=== PATIENT | female | born 1990 | race Caucasian/White ===

== ENCOUNTER 2018-11-21 22:15 | Inpatient (IN) | payer OTHER ==
[~2018-11-21] VITALS: Ht 152.4 cm; Wt 74.8 kg
--- NOTE | 2018-11-21 22:16 | NUR ---
PT OBINNA ALS. TAKEN TO BED 6
[2018-11-21 22:20] VITALS: BP 121/87
--- NOTE | 2018-11-21 22:20 | NUR ---
PT BIBA FOR INTENTIONAL OD, W/ SI, ON UNKNOWN NUMBER OF TYLENOL PM TABS X 1 HOUR AGO. ON ARRIVAL TO ER, PT IS A&OX4, ANSWERS ALL QUESTIONS WITH DELAYED RESPONSE AND DEMOSNTRATES SLURRED SPEECH. PT IS ON A 6820 HOLD WRITTEN BY [place] . PATIENT IS LETHARGIC AND NOT FOLLOWING COMMANDS.
--- NOTE | 2018-11-21 22:25 | NUR ---
SPOKE ITZEL AT POISON CONTROL WHO RECOMMENDS STANDARD SI WORK-UP W/ TYLENOL LEVEL AFTER 4 HOUR INGESTION TIME. IF TYLENOL >150, GIVE MUCOMYST. RECHECK TYLENOL AT 6 HOURS IF NOT TOXIC AFTER 4 HOURS. MONITOR HR AND FOR POSSIBLE SZ S/T BENADRYL IN TYLENOL PM. MD GRAHAM/PRIMARY RN KIKA NOTIFIED.
[2018-11-21] MEDS ORDERED: NACL 0.9% 1,000 ML IV ONE (22:30)
--- NOTE | 2018-11-21 22:32 | NUR ---
Dr. Stout evaluating patient at bedside.
--- NOTE | 2018-11-21 23:20 | NUR ---
# 14 FR Urinary catheter inserted utilizing sterile technique. Immediate return of 150 ml urine noted. Urine sample collected and sent to lab. Pt tolerated procedure well.
[2018-11-21 23:33] LABS: BARBITURATE, URINE NEG. ng/ml (NEG <=200); BENZODIAZEPINE, URINE NEG. ng/mL (NEG <=200); CANNABINOID, URINE NEG. ng/mL (NEG <=50); COCAINE, URINE NEG. ng/mL (NEG <=300); OPIATE, URINE NEG. ng/mL (NEG <=2000); PHENCYCLIDINE SCREEN,URINE NEG. ng/mL (NEG <=25)
[2018-11-21 23:36] LABS: BASOPHILS % (AUTO) 0.6 % (0.0-2.0); EOSINOPHILS # (AUTO) 0.2 K/uL (0-0.4); EOSINOPHILS % (AUTO) 2.4 % (0.0-4.0); HEMATOCRIT 39.2 % (36-48); LYMPHOCYTES # (AUTO) 2.9 K/uL (2.5-16.5); LYMPHOCYTES % (AUTO) 38.2 % (20.5-51.1); MEAN CORPUSCULAR HEMOGLOBIN 30 pg (27-31); MEAN CORPUSCULAR HGB CONC 33 g/dL (33-37); MEAN CORPUSCULAR VOLUME 89.8 fL (80-94); MONOCYTES # (AUTO) 0.7 K/uL (0.8-1.0); MONOCYTES % (AUTO) 9.7 % (1.7-9.3); NEUTROPHILS # (AUTO) 3.8 K/uL (1.8-7.7); NEUTROPHILS % (AUTO) 49.1 % (42.2-75.2); PLATELET COUNT (AUTO) 284 K/uL (140-450); RED BLOOD CELL COUNT(AUTO) 4.36 MIL/uL (4.20-5.40); RED CELL DISTRIBUTION WIDTH 12.8 % (11.6-13.7); WHITE BLOOD COUNT (AUTO) 7.7 K/uL (4.8-10.8)
[2018-11-22] VITALS (11 sets, daily range): BP systolic 102–127; BP diastolic 67–87
[2018-11-22 00:07] LABS: ANION GAP 17.5 (8-16); CARBON DIOXIDE 24.1 mmol/L (21-32); CHLORIDE 107 mmol/L (98-107); GLUCOSE 119 mg/dL (74-106); POTASSIUM 3.6 mmol/L (3.5-5.1); SODIUM SERUM 145 mmol/L (136-145)
[2018-11-22 00:08] LABS: ALBUMIN 3.5 g/dL (3.4-5.0); ASPARTATE AMINOTRANSFERASE 16 U/L (15-37); CREATININE 0.9 mg/dL (0.6-1.3); GFR ARICAN-AMERICAN 97 mL/min (>90); SALICYLATE < 2.8 mg/dL (2.8-20.0); TOTAL BILIRUBIN 0.2 mg/dL (0.0-1.0)
[2018-11-22 00:10] LABS: ACETAMINOPHEN 211.9 ug/ml (10-30)
[2018-11-22 00:12] LABS: UREA NITROGEN, BLOOD 10 mg/dL (7-18)
[2018-11-22] MEDS ORDERED: ACETYLCYSTEINE 20% (200 MG/ML) 200 MG/ML VIAL MC ONE (00:20)
[2018-11-22] MEDS ORDERED: ACETYLCYSTEINE 20% (200 MG/ML) 200 MG/ML VIAL ONE (00:31)
[2018-11-22] MEDS ORDERED: NACL 0.9% 1,000 ML IV SCH (00:31)
[2018-11-22] MEDS ORDERED: ONDANSETRON 4 MG/2 ML VIAL IM/IVP PRN (00:35)
[2018-11-22] MEDS ORDERED: DOCUSATE SODIUM 100 MG GELCAP PO PRN (00:35)
[2018-11-22] MEDS ORDERED: MORPHINE SULFATE 2 MG/ML SYR IVP PRN (00:35)
--- NOTE | 2018-11-22 00:56 | NUR ---
X-Ray at bedside.
[2018-11-22] MEDS ORDERED: LORazepam 1 MG TAB PO PRN (01:00)
[2018-11-22 01:15] LABS: APPEARANCE,URINE CLEAR (CLEAR); BILIRUBIN,URINE NEGATIVE (NEGATIVE); BLOOD, URINE NEGATIVE (NEGATIVE); COLOR,URINE YELLOW (YELLOW); LEUKOCYTE ESTERASE ,URINE NEGATIVE (NEGATIVE); NITRITE, URINE NEGATIVE (NEGATIVE); UGLUCOSE NEGATIVE (NEGATIVE)
--- NOTE | 2018-11-22 01:20 | NUR ---
RECEIVED REPORT FROM ER. NO ACUTE DISTRESS NOTED. WILL CONTINUE TO OBSERVE
--- NOTE | 2018-11-22 01:25 | NUR ---
PT HAS EYES CLOSED; OPENS TO VOICE. PT HAS SLURRED SPEECH @ TIMES ABLE TO FOLLOW SIMPLE COMMANDS. AOX1 @ THIS TIME. GENERALIZED WEAKNESS. PT ON 5150 HOLD, SUICIDAL PRECAUTIONS IN PLACE. PT DENIES THOUGHTS OF HURTING SELF OR OTHERS. DENIES SUICIDE PLAN. LUNGS CLEAR EVEN UNLABORED, S1 S2 HEARD. ABD SOFT NON DISTENDED. PT HAS PERIODS OF NAUSEA. BED LOCKED IN LOWEST POSITION. WILL CONTINUE TO OBSERVE.
[2018-11-22 01:26] LABS: CHOL/HDL RATIO 2.8 (1-4.5); MAGNESIUM 1.9 mg/dL (1.8-2.4); PHOSPHORUS 3.3 mg/dL (2.5-4.9); THYROID STIMULATING HORMONE 2.05 uIU/mL (0.34-3.74)
--- NOTE | 2018-11-22 01:27 | NUR ---
SPOKE TO DR FLETCHER, SHE WILL CANCEL ORDER FOR 0031 EKG SINCE ONE WAS DONE IN ER.
[2018-11-22] MEDS ORDERED: ACETYLCYSTEINE IV PER PHARMACY 1 EA MISC MC SCH (01:30)
--- NOTE | 2018-11-22 01:30 | NUR ---
Patient will be admitted to care of DR. BRADFORD. Admited to ICU. Will go to room 6. Belongings list completed. Report to NICOLETTE BRAN. VSS
--- NOTE | 2018-11-22 01:30 | NUR ---
Pt report given to YINA WILL. Transfer of care at this time.VSS
[2018-11-22] MEDS ORDERED: DEXTROSE 5% IV SCH ×3 (02:00→06:00)
[2018-11-22] MEDS ORDERED: ACETYLCYSTEINE IV SCH ×3 (02:00→06:00)
--- NOTE | 2018-11-22 02:10 | NUR ---
RECEIVED A CALL FROM POISON CONTROL, SPOKE TO MARGO. UPDATED HIM REGARDING THE PT'S CONDITION AND LAB VALUES PERTINENT TO PT'S CONDITION. CURRENT RECOMMENDATION WAS ALREADY ORDERED BY ATTENDING PHYSICIAN. WILL CONTINUE TO MONITOR PT.
--- NOTE | 2018-11-22 02:13 | NUR ---
CALLED LAB AND SPOKE TO KI, INFORMED HER THAT PT HAS A SCHEDULED DRAW AT 0200.
[2018-11-22 03:38] LABS: PROTHROMBIN TIME 10.7 secs (10.8-13.4)
--- NOTE | 2018-11-22 03:39 | NUR ---
RECEIVED A CALL FROM DR. FLETCHER FOLLOWING UP REGARDING THE MUCOMYST ORDERED FOR PT. INFORMED DR. FLETCHER THAT WE ARE CURRENTLY WAITING FOR THE PHARMACIST TO MIX THE MEDICATION. WILL FOLLOW-UP WITH INFORMATION CONSULTANT REGARDING THE MEDICATION AND TO CALL BACK DR. FLETCHER.
--- NOTE | 2018-11-22 03:40 | NUR ---
CALLED DRILLING FIELD SPECIALIST, PER SELINA, PHARMACIST IS ALREADY IN BUT CURRENTLY TRYING TO FIND ENOUGH MUCOMYST DUE TO HIGH DOSAGE ORDERED.
--- NOTE | 2018-11-22 03:42 | NUR ---
CALLED BACK DR. FLETCHER TO INFORM HER REGARDING THE STATUS OF THE MEDICATION. WILL CONTINUE TO FOLLOW-UP WITH THE MEDICATION AND KEEP MONITORING THE PT.
--- NOTE | 2018-11-22 04:05 | NUR ---
DR. FLETCHER AT BEDSIDE TO SEE PT. UPDATED HER REGARDING THE PT'S CONDITION. PT WAS ABLE TO TALK TO DR. FLETCHER AND PROVIDE SOME CONTACT INFORMATION AT THIS TIME.
--- NOTE | 2018-11-22 06:39 | NUR ---
RECEIVED A CALL FROM DR. CISNEROS, INFORMED HIM REGARDING THE CURRENT STATUS AND LAB VALUES OF PT. RECEIVED A NEW ORDER. LAB NOTIFIED REGARDING ADDITIONAL ORDER.
--- NOTE | 2018-11-22 06:55 | NUR ---
DR CISNEROS @ BEDSIDE. PT DENIES SUICIDE IDEATION @ THIS TIME. NO ACUTE DISTRESS
[2018-11-22] MEDS: DEXT 5% / NACL 0.45% 1,000 ML IV SCH ×2 (07:00→15:40)
--- NOTE | 2018-11-22 07:15 | NUR ---
REPORT GIVEN TO DAY NURSE. NO ACUTE DISTRESS NOTED.
[2018-11-22 07:39] LABS: BASOPHILS % (AUTO) 0.4 % (0.0-2.0); EOSINOPHILS % (AUTO) 0.1 % (0.0-4.0); HEMATOCRIT 37.5 % (36-48); HEMOGLOBIN 12.5 g/dL (12.0-16.0); LYMPHOCYTES # (AUTO) 0.6 K/uL (2.5-16.5); LYMPHOCYTES % (AUTO) 11.8 % (20.5-51.1); MEAN CORPUSCULAR HEMOGLOBIN 30 pg (27-31); MEAN CORPUSCULAR HGB CONC 33 g/dL (33-37); MEAN CORPUSCULAR VOLUME 90.1 fL (80-94); MONOCYTES # (AUTO) 0.4 K/uL (0.8-1.0); MONOCYTES % (AUTO) 7.6 % (1.7-9.3); NEUTROPHILS % (AUTO) 80.1 % (42.2-75.2); PLATELET COUNT (AUTO) 239 K/uL (140-450); RED BLOOD CELL COUNT(AUTO) 4.17 MIL/uL (4.20-5.40); RED CELL DISTRIBUTION WIDTH 12.9 % (11.6-13.7)
--- NOTE | 2018-11-22 07:45 | NUR ---
AWAKE, RESPONDS APPROPRIATELY TO QUESTIONS. DENIES ANY PAINS. DENIES WANTING TO HURT/KILL SELF. STATES SHE DID WHAT SHE DID TO GET ATTENTION FROM HER FAMILY. ( HER FAMILY LIVES IN [place] ) ADMITS TO TAKING AMPHETAMINES X 6 YEARS AND THAT SHE'S SEEN A PSYCHIATRIST IN THE PAST. LAST TIME WAS A YEAR AGO. IV MUCOMYST DRIP INFUSING VIA RT AC IV SITE. D5 0.45% INFUSING AT 100 ML/HR VIA RT HAND IV SITE. ABLE TO REPOSITION SELF IN BED WITH MINIMAL ASSIST.
--- NOTE | 2018-11-22 07:50 | NUR ---
DR. BRADFORD HERE TO SEE AND EXAMINE PT.
[2018-11-22 08:21] LABS: PROTHROMBIN TIME 10.5 secs (10.8-13.4)
--- NOTE | 2018-11-22 08:30 | NUR ---
C/O PAIN OVER RT AC IV SITE. SL REDDENED. IV DC'D. RESTARTED ON RT FA G 20.
[2018-11-22 08:35] LABS: CARBON DIOXIDE 20.8 mmol/L (21-32)
--- NOTE | 2018-11-22 08:45 | NUR ---
VOMITED MOD. AMT OF PREVIOUSLY INGESTED FOOD. ORAL CARE DONE. ZOFRAN 4 MG IVP GIVEN.
--- NOTE | 2018-11-22 09:00 | NUR ---
MADE AWARE THAT SHE IS NPO EXCEPT MEDS.
[2018-11-22 09:05] LABS: ANION GAP 19.1 (8-16); CREATININE 0.7 mg/dL (0.6-1.3); POTASSIUM 3.9 mmol/L (3.5-5.1)
[2018-11-22 09:15] LABS: ALBUMIN 3.1 g/dL (3.4-5.0); BILIRUBIN,DIRECT 0.1 mg/dL (0.0-0.3); TOTAL BILIRUBIN 0.3 mg/dL (0.0-1.0)
--- NOTE | 2018-11-22 09:20 | NUR ---
DR. GERARDO HERE TO SEE AND EXAMINE PT.
[2018-11-22] MEDS: MULTIVITAMIN 1 TAB PO SCH (09:24)
[2018-11-22] MEDS: FOLIC ACID 1 MG TAB PO SCH (09:25)
[2018-11-22] MEDS: THIAMINE 100 MG TAB PO SCH (09:31)
--- NOTE | 2018-11-22 10:15 | NUR ---
NO NAUSEA/VOMITING NOTED AT THIS TIME.
--- NOTE | 2018-11-22 11:03 | NUR ---
SPOKE TO RUBIN FROM POISON CONTROL. UPDATED ON PT'S CONDITION AND LAB RESULTS. RECOMMENDED TO DO REPEAT TYLENOL LEVEL, LIVER PANEL, PT/INR AFTER CURRENT MUCOMYST DRIP IS INFUSED.
--- NOTE | 2018-11-22 11:15 | NUR ---
DR. PAULINO NOTIFIED OF POISON CONTROL RECOMMENDATIONS.
--- NOTE | 2018-11-22 12:00 | NUR ---
AWAKE, REPOSITIONED. DENIES ANY DISCOMFORTS. AWARE THAT WE ARE WAITING FOR PSYCHIATRIST TO COME AND EVALUATE HER.
--- NOTE | 2018-11-22 12:26 | NUR ---
DR. ANGELREES HERE TO SEE AND EXAMINE PT.
--- NOTE | 2018-11-22 13:00 | NUR ---
ASSISTED TO BEDSIDE COMMODE. GAIT STEADY. VOIDED 800 ML OF BLOOD TINGED URINE. PT HAS MENSTRUAL PERIOD. BATH AND ORAL CARE DONE. LINENS CHANGED. TOLERATED ACTIVITY WELL.
--- NOTE | 2018-11-22 13:15 | NUR ---
LUNCH SERVED. CLEAR LIQUID DIET. ATE 90% NO N/V.
--- NOTE | 2018-11-22 16:13 | NUR ---
PT RESTING IN BED. ASSISTED WITH REPOSITION. DENIES PAIN OR DISCOMFORT. VSS. AFEBRILE. CLOSELY MONITORED. ALL SAFETY PRECAUTIONS ARE IN PLACE.
--- NOTE | 2018-11-22 17:55 | NUR ---
PT CONSUMED 100% OF CLEAR LIQUID DIET AND TOLERATED WELL. VSS AND DENIES N/V OR ANY DISCOMFORT AT THIS TIME. ALL SAFETY PRECAUTIONS ARE IN PLACE. WILL CONTINUE TO CLOSELY MONITOR.
--- NOTE | 2018-11-22 18:15 | NUR ---
PT HAD A LARGE SOFT BM. ASSISTED WITH HYGIENE. TOLERATED WELL. VSS. NO ACUTE DISTRESS NOTED. DENIES PAIN OR DISCOMFORT. DENIES ANY SUICIDAL IDEATION. CONTINUE TO MONITOR CLOSELY.
--- NOTE | 2018-11-22 18:24 | NUR ---
DR. FLETCHER IN TO SEE PT.
[2018-11-22] MEDS ORDERED: SERT50TA PO (18:47)
[2018-11-22] MEDS ORDERED: PROP10TA28 PO (18:47)
[2018-11-22] MEDS ORDERED: AMPH30CE PO (18:47)
--- NOTE | 2018-11-22 19:07 | NUR ---
REPORT GIVEN TO NIGHT NURSE FOR CONTINUITY OF CARE. PT RESTING IN BED. VSS. DENIES ANY DISCOMFORT. ALL SAFETY PRECAUTIONS ARE IN PLACE.
--- NOTE | 2018-11-22 19:08 | NUR ---
RECEIVED REPORT FROM AM SHIFT. PT RESTING QUIETLY IN BED. ON 5150 FOR SUICIDE IDEATION AND DRUG OVERDOSE. AOX4. ABLE TO VERBALIZE NEEDS. FOLLOWS COMMANDS. ON ROOM AIR. EVEN UNLABORED BREATHING. SR ON MONITOR. FULL LIQUID DIET. BOWEL SOUNDS ACTIVE. LBM 11/22/18. CONTINENT TO BOWEL AND BLADDER. IV 20 G ON RIGHT FA. DRESSING INTACT. BSC PRIVILEGES. SKIN INTACT. NO SIGNS OF ACUTE DISTRESS AT THIS TIME. BED IN LOWEST POSITION. SR UP X4. WILL CONTINUE TO MONITOR.
--- NOTE | 2018-11-22 21:48 | NUR ---
PT RESTING AT THIS TIME. DENIES PAIN. DENIES NAUSEA. CONTINUE TO MONITOR
--- NOTE | 2018-11-22 22:22 | NUR ---
PT RESTING QUIETLY AT THIS TIME. NO SIGNS OF ACUTE DISTRESS NOTED BED IN LOWEST POSITION. CONTINUE TO MONITOR,
--- NOTE | 2018-11-22 23:15 | NUR ---
PT REPOSITIONS SELF INDEPENDENTLY IN BED. ABLE TO VERBALIZE NEEDS. DENIES SUICIDE IDEATION.
[2018-11-23] VITALS (8 sets, daily range): BP systolic 95–121; BP diastolic 61–88
[2018-11-23] MEDS: DEXT 5% / NACL 0.45% 1,000 ML IV SCH (01:40)
--- NOTE | 2018-11-23 01:42 | NUR ---
LAB AT BEDSIDE AT THIS TIME FOR BLOOD DRAWS
--- NOTE | 2018-11-23 02:42 | NUR ---
PT AT BEDSIDE COMMODE AT THIS TIME. VOIDED CLEAR YELLOW URINE. 600 ML. BED CHANGED AT THIS TIME. NO SIGNS OF ACUTE DISTRESS NOTED.
[2018-11-23 02:45] LABS: ALBUMIN 2.6 g/dL (3.4-5.0); BILIRUBIN,DIRECT 0.1 mg/dL (0.0-0.3); TOTAL BILIRUBIN 0.4 mg/dL (0.0-1.0)
[2018-11-23 02:46] LABS: ACETAMINOPHEN 2.5 ug/ml (10-30)
[2018-11-23 02:49] LABS: PROTHROMBIN TIME 10.9 secs (10.8-13.4)
--- NOTE | 2018-11-23 03:07 | NUR ---
SPOKE WITH NURYS AT POISON CONTROL. NOTIFIED ON CURRENT LAB VALUES: ACETAMINOPHEN 2.5 AND AST/ALT WNL.
--- NOTE | 2018-11-23 03:09 | NUR ---
SPOKE WITH DR. FLETCHER REGARDING POISON CONTROLS DECISION TO CLEAR THE CASE. MD MADE AWARE AND MUCOMYST TO BE DISCONTINUED. WILL FOLLOW UP ANY ADDITIONAL ORDERS.
--- NOTE | 2018-11-23 04:43 | NUR ---
PT SLEEPING AT THIS TIME. DENIES PAIN. NO SIGNS OF ACUTE DISTRESS NOTED.
--- NOTE | 2018-11-23 05:44 | NUR ---
LAB AT BEDSIDE AT THIS TIME FOR AM DRAW.
[2018-11-23 06:01] LABS: PROTHROMBIN TIME 10.7 secs (10.8-13.4)
[2018-11-23 06:27] LABS: ANION GAP 11.1 (8-16); CARBON DIOXIDE 24.9 mmol/L (21-32); CREATININE 0.7 mg/dL (0.6-1.3)
--- NOTE | 2018-11-23 06:30 | NUR ---
DR. CRANE AT BEDSIDE AT THIS TIME. UPDATED ON PTS CURRENT CONDITION. WILL CONTINUE TO FOLLOW UP ANY ADDITIONAL ORDERS.
[2018-11-23 06:34] LABS: BASOPHILS % (AUTO) 0.4 % (0.0-2.0); EOSINOPHILS # (AUTO) 0.1 K/uL (0-0.4); EOSINOPHILS % (AUTO) 1.4 % (0.0-4.0); HEMATOCRIT 35.2 % (36-48); HEMOGLOBIN 11.7 g/dL (12.0-16.0); LYMPHOCYTES # (AUTO) 2.4 K/uL (2.5-16.5); LYMPHOCYTES % (AUTO) 39.5 % (20.5-51.1); MEAN CORPUSCULAR HEMOGLOBIN 30 pg (27-31); MEAN CORPUSCULAR HGB CONC 33 g/dL (33-37); MEAN CORPUSCULAR VOLUME 89.8 fL (80-94); MONOCYTES # (AUTO) 0.4 K/uL (0.8-1.0); MONOCYTES % (AUTO) 6.8 % (1.7-9.3); NEUTROPHILS # (AUTO) 3.2 K/uL (1.8-7.7); NEUTROPHILS % (AUTO) 51.9 % (42.2-75.2); PLATELET COUNT (AUTO) 220 K/uL (140-450); RED BLOOD CELL COUNT(AUTO) 3.91 MIL/uL (4.20-5.40); WHITE BLOOD COUNT (AUTO) 6.1 K/uL (4.8-10.8)
[2018-11-23] MEDS: NACL 0.9% 250 ML IV SCH (06:36)
[2018-11-23] MEDS ORDERED: AMPH30CE PO (06:40)
[2018-11-23] MEDS ORDERED: SERT50TA PO (06:40)
[2018-11-23] MEDS ORDERED: PROP20TA28 PO (06:42)
[2018-11-23] MEDS ORDERED: POTASSIUM CHLORIDE 10 MEQ TABER PO ONE (06:50)
[2018-11-23] MEDS ORDERED: POTASSIUM CHLORIDE 40 MEQ, LIDOCAINE MPF 1% - 5 mL VIAL 25 MG in NACL 0.9% 250 ML IV ONE (06:50)
--- NOTE | 2018-11-23 06:50 | NUR ---
POTASSIUM 3.0 FROM AM DRAWS. MADE AWARE. WILL CONTINUE TO FOLLOW UP ANY ADDITIONAL ORDERS
--- NOTE | 2018-11-23 07:09 | NUR ---
ENDORSED CARE TO INCOMING SHIFT FOR CONTINUITY OF CARE.
--- NOTE | 2018-11-23 07:10 | NUR ---
RECEIVED REPORT FROM TEST DIRECTOR NURSE AT BEDSIDE, PT IS AAOX4, ABLE TO FOLLOW COMMANDS AND MAKE NEEDS KNOWN, DENIES PAIN, VSS, DENIES ANY SUICIDAL IDEATION, DENIES SOB, CLEAR LUNG SOUNDS FAMILIA, ON RA, O2 SAT 98%, DENIES CHEST PAIN, REGULAR HR, SR ON LADLE OPERATOR, SOFT ABDOMEN WITH ACTIVE BOWEL SOUNDS, CONTINENT WITH B&B'S, SKIN IS INTACT, WARM AND DRY TO TOUCH, ABLE TO MOVE ALL EXTREMITIES, FULL STRENGTH, IV SITE TO RIGHT FOREARM, 20GA AND 22GA, PATENT AND SL. HOB ELEVATED, SAFETY MEASURES IN PLACE, CALL LIGHT WITHIN REACH, WILL CONTINUE TO MONITOR.
[2018-11-23 07:54] LABS: MAGNESIUM 1.7 mg/dL (1.8-2.4); PHOSPHORUS 2.3 mg/dL (2.5-4.9)
--- NOTE | 2018-11-23 08:24 | NUR ---
PATIENT HAS BEEN SCREENED AND CATEGORIZED LOW NUTRITION RISK DUE TO 5150 HOLD. PATIENT WILL BE SEEN WITHIN 7 DAYS OF ADMISSION. 11/28/[address]
[2018-11-23] MEDS ORDERED: POTASSIUM CHLORIDE 10 MEQ TABER PO SCH (08:35)
[2018-11-23] MEDS: THIAMINE 100 MG TAB PO SCH (08:49)
[2018-11-23] MEDS: MULTIVITAMIN 1 TAB PO SCH (08:49)
[2018-11-23] MEDS: FOLIC ACID 1 MG TAB PO SCH (08:49)
[2018-11-23] MEDS: SERTRALINE 50 MG TAB PO SCH (08:49)
--- NOTE | 2018-11-23 09:24 | NUR ---
CM NOTE RECEIVED ORDER TO TRANSFER TO INPATIENT PSYCH FACILITY. FAXED ORDER, COPY OF 2269, CLINICAL PACKET TO [facility] [phone] # [phone].
[2018-11-23 09:34] LABS: T4 (THYROXINE) 5.9 ug/dL (4.5-12.0)
--- NOTE | 2018-11-23 10:14 | NUR ---
[facility] aware of patient. Intake will be faxed to all contracted facilities and followed up with [facility].
[2018-11-23] MEDS ORDERED: CALCIUM ACETATE 667 MG TAB PO ONE (11:10)
[2018-11-23] MEDS ORDERED: MAGNESIUM OXIDE 400 MG TAB PO SCH (11:30)
[2018-11-23] MEDS ORDERED: SODIUM PHOS / POTASSIUM PHOS 1 PKT PDR PO SCH (12:00)
--- NOTE | 2018-11-23 12:00 | NUR ---
PT IS SITTING UP EATING AT BEDSIDE, NO S/S OF DISTRESS, VSS, DENIES PAIN.
--- NOTE | 2018-11-23 16:00 | NUR ---
PT IS RESTING IN BED QUIETLY, NO S/S OF DISTRESS, DENIES PAIN, VSS.
[2018-11-23 17:44] LABS: ANION GAP 12.1 (8-16); CARBON DIOXIDE 25.8 mmol/L (21-32); CREATININE 0.8 mg/dL (0.6-1.3); POTASSIUM 3.9 mmol/L (3.5-5.1)
--- NOTE | 2018-11-23 19:20 | NUR ---
RECEIVED BEDSIDE REPORT FROM MORNING SHIFT RN RONAK, PT IS AAOX4, AWAKE, CALM/COOPERATIVE. AFEBRILE TEMP 97.7. VSS 125/73, SATING 95%, RR=21, HR=76. SKIN IS INTACT. ON ROOM AIR, SR ON JOB CAPTAIN. NS INFUSING AT 10CC/HR TO RIGHT FA 20 GAUGE PIV. LUNGS SOUNDS CLEAR/BOWEL SOUND ACTIVE. NO BRYAN IN PLACE, COMMODE AT BEDSIDE, PT IS INDEPENDENT. BED IS FLAT, PENCILLIN NOTED ON ALLERGY BAND, FALL RISK PRECAUTIONS MAINTAINED.
--- NOTE | 2018-11-23 19:25 | NUR ---
REPORT GIVEN TO MEDICAL CUSTOMER SERVICE REPRESENTATIVE NURSE FOR CONTINUE OF CARE.
--- NOTE | 2018-11-23 20:22 | NUR ---
RECEIVED CALL FROM [facility]. INFORMED THAT PATIENT HAS [employer] INSURANCE AND SEEKING PLACEMENT AT [facility], PT CONFIRMED 91. REQUESTING FOLLOW-UP FOR COPY OF AET[employer] INSURANCE CARD/ID NUMBER.
--- NOTE | 2018-11-23 22:06 | NUR ---
[facility] AT [phone] SPOKE WITH LIVAN AND PROVIDED [employer]ET[employer] INSURANCE GROUP AND ID NUMBER.
--- NOTE | 2018-11-23 22:37 | NUR ---
BEBA, FROM [facility] CALLED FOR POTENTIAL PLACEMENT, UPDATED ON PT CONDITION. CALL BACK #[phone].
[2018-11-24] VITALS: BP 107/73
--- NOTE | 2018-11-24 02:30 | NUR ---
PT SLEEPING QUIETLY, APPEARS TO BE WITHOUT DISTRESS. ROOM AIR. VSS.
[2018-11-24 04:00] VITALS: BP 109/77
--- NOTE | 2018-11-24 05:00 | NUR ---
MARQUIS AT BEDSIDE TO COLLECT LAB, PT COOPERATIVE/CALM, EASY TO AROUSE.
[2018-11-24 06:27] LABS: BASOPHILS % (AUTO) 0.4 % (0.0-2.0); EOSINOPHILS # (AUTO) 0.1 K/uL (0-0.4); EOSINOPHILS % (AUTO) 2.7 % (0.0-4.0); HEMATOCRIT 36.5 % (36-48); HEMOGLOBIN 12.2 g/dL (12.0-16.0); LYMPHOCYTES # (AUTO) 2.1 K/uL (2.5-16.5); LYMPHOCYTES % (AUTO) 41.2 % (20.5-51.1); MEAN CORPUSCULAR HEMOGLOBIN 30 pg (27-31); MEAN CORPUSCULAR HGB CONC 34 g/dL (33-37); MEAN CORPUSCULAR VOLUME 89.6 fL (80-94); MONOCYTES # (AUTO) 0.5 K/uL (0.8-1.0); MONOCYTES % (AUTO) 9.6 % (1.7-9.3); NEUTROPHILS # (AUTO) 2.4 K/uL (1.8-7.7); NEUTROPHILS % (AUTO) 46.1 % (42.2-75.2); PLATELET COUNT (AUTO) 234 K/uL (140-450); RED BLOOD CELL COUNT(AUTO) 4.08 MIL/uL (4.20-5.40); RED CELL DISTRIBUTION WIDTH 12.7 % (11.6-13.7); WHITE BLOOD COUNT (AUTO) 5.2 K/uL (4.8-10.8)
[2018-11-24] MEDS: NACL 0.9% 250 ML IV SCH (06:33)
--- NOTE | 2018-11-24 06:44 | NUR ---
DR. CRANE IN TO SEE PATIENT.
[2018-11-24 06:51] LABS: ANION GAP 13.1 (8-16); CARBON DIOXIDE 25.5 mmol/L (21-32); CREATININE 0.7 mg/dL (0.6-1.3); POTASSIUM 3.6 mmol/L (3.5-5.1)
[2018-11-24 07:01] LABS: MAGNESIUM 1.9 mg/dL (1.8-2.4); PHOSPHORUS 3.6 mg/dL (2.5-4.9)
--- NOTE | 2018-11-24 07:19 | NUR ---
RECEIVED BEDSIDE REPORT FROM ENTRY SPECIALISTS RN ANANDA, FOR CONTINUITY OF CARE. PATIENT IS AAOX4, ABLE TO FOLLOW COMMANDS AND MAKE NEEDS KNOWN. SKIN INTACT, WARM AND DRY. PATIENT IS SR ON MONITOR, DENIES ANY PAIN, ON ROOM AIR. SAFETY PRECAUTIONS AND ALARMS ASSESSED AND ENFORCED. HOB IS SEMI CLARK, NO SIGNS OF DISTRESS AT THIS TIME. WILL CONTINUE TO MONITOR
[2018-11-24 08:00] VITALS: BP 106/60
--- NOTE | 2018-11-24 08:15 | NUR ---
DR. PETIT AND RESIDENT PHYSICIANS IN TO SEE PATIENT, WILL FOLLOW UP ON ANY ORDERS.
[2018-11-24] MEDS: SERTRALINE 50 MG TAB PO SCH (08:31)
[2018-11-24] MEDS: THIAMINE 100 MG TAB PO SCH (08:31)
[2018-11-24] MEDS: FOLIC ACID 1 MG TAB PO SCH (08:31)
[2018-11-24] MEDS: MULTIVITAMIN 1 TAB PO SCH (08:31)
--- NOTE | 2018-11-24 09:05 | NUR ---
ADMINISTERED SCHEDULED MEDS ORDERED, PATIENT TOLERATED WELL.
--- NOTE | 2018-11-24 10:25 | NUR ---
PATIENT IS SITTING QUIETLY, NO SIGNS OF DISTRESS AT THIS TIME
[2018-11-24 12:00] VITALS: BP 110/75
[2018-11-24 14:15] VITALS: BP 133/85
--- NOTE | 2018-11-24 14:15 | NUR ---
TRANSFERRED PATIENT TO [facility] VIA WHEELCHAIR. ENDORSED CONTINUITY OF CARE TO MST RN, JUNIOR. NO SIGNS OF DISTRESS AT THIS TIME
--- NOTE | 2018-11-24 15:28 | NUR ---
CM NOTE PATIENT NOW HAS AETNA PPO. MOST CURRENT FACESHEET AND MOST CURRENT [id number] FAXED TO [facility]. JULIA OF [facility] PH# [phone] AWARE.
--- NOTE | 2018-11-24 15:30 | NUR ---
PT IS SLEEPING NOW.
[2018-11-24 16:00] VITALS: BP 136/96
--- NOTE | 2018-11-24 16:40 | NUR ---
PT IS AWAKE AND SEATED QUIETLY ON THE BED, VITAL SIGNS TAKEN AND IS WITHIN NORMAL LIMITS, 1:1 SITTER ON THE BEDSIDE, WILL MONITOR PT.
--- NOTE | 2018-11-24 17:25 | NUR ---
PATIENT IS SEATED QUIETLY ON TH BED, 1;1 SITTER ON THE BEDSIDE.
--- NOTE | 2018-11-24 18:18 | NUR ---
PT IS AWAKE AND IS EATING HER DINNER QUIETLY
--- NOTE | 2018-11-24 19:20 | NUR ---
ENDORSED PT TO COUTIERIER NURSE, SHAVONNE FOR CONTINUITY OF CARE. PT IS STABLE AT TIS TIME WITH BOYFRIEND ON THE BEDSIDE.
--- NOTE | 2018-11-24 19:21 | NUR ---
RECEIVED REPORT FROM DAY SHIFT RN JUNIOR FOR CONTINUITY OF CARE. PT IS A/OX4, ON ROOM AIR. PT ABLE TO MAKE NEEDS KNOWN, AND ABLE TO FOLLOW COMMANDS. PT AMBULATES WITH STEADY GAIT. PT SKIN IS INTACT. PT HAS 20G IV TO RIGHT FOREARM, ASYMPTOMATIC AND INTACT. DISCUSSED PLAN OF CARE WITH PT, PT VERBALIZED UNDERSTANDING. VITAL SIGNS WITHIN NORMAL LIMITS. PT STABLE, DENIES PAIN, NO SIGNS OF DISTRESS NOTED AT THIS TIME. PT POSITIONED FOR COMFORT. BED IN LOWEST POSITION, BED ALARM ON. WILL CONTINUE TO MONITOR.
--- NOTE | 2018-11-24 21:39 | NUR ---
At this time there are no beds available for placement, will continue to make calls at other facilities , and notify charge nurse if placement is found.
--- NOTE | 2018-11-24 21:40 | NUR ---
PT REQUESTED TOOTHBRUSH AND TOOTHPASTE, BRUSHED TEETH AND GOT READY FOR BED. PT NOW IN BED. NO SIGNS OF DISTRESS NOTED AT THIS TIME. PT POSITIONED HERSELF FOR COMFORT. BED IN LOWEST POSITION, BED ALARM ON. WILL CONTINUE TO MONITOR.
[2018-11-25] VITALS: BP 131/86
--- NOTE | 2018-11-25 | NUR ---
VITAL SIGNS WITHIN NORMAL LIMITS. PT STABLE, DENIES PAIN, NO SIGNS OF DISTRESS NOTED AT THIS TIME. PT POSITIONED HERSELF FOR COMFORT. BED IN LOWEST POSITION, BED ALARM ON. WILL CONTINUE TO MONITOR.
--- NOTE | 2018-11-25 02:43 | NUR ---
PT STABLE, DENIES PAIN, NO SIGNS OF DISTRESS NOTED AT THIS TIME. PT POSITIONED FOR COMFORT. BED IN LOWEST POSITION, BED ALARM ON. WILL CONTINUE TO MONITOR.
--- NOTE | 2018-11-25 04:15 | NUR ---
PT RESTING, NO SIGNS OF DISTRESS NOTED AT THIS TIME. BED IN LOWEST POSITION, BED ALARM ON. WILL CONTINUE TO MONITOR.
[2018-11-25] MEDS: NACL 0.9% 250 ML IV SCH (06:35)
--- NOTE | 2018-11-25 06:35 | NUR ---
PT ASKED IF WE HAD EARPLUGS, GAVE ONE PAIR OF EARPLUGS TO PT.
[2018-11-25 07:18] LABS: ANION GAP 14.9 (8-16); BASOPHILS % (AUTO) 0.4 % (0.0-2.0); CARBON DIOXIDE 25.6 mmol/L (21-32); CREATININE 0.7 mg/dL (0.6-1.3); EOSINOPHILS # (AUTO) 0.2 K/uL (0-0.4); EOSINOPHILS % (AUTO) 3.1 % (0.0-4.0); HEMATOCRIT 36.8 % (36-48); HEMOGLOBIN 12.4 g/dL (12.0-16.0); LYMPHOCYTES # (AUTO) 1.7 K/uL (2.5-16.5); LYMPHOCYTES % (AUTO) 29.6 % (20.5-51.1); MEAN CORPUSCULAR HEMOGLOBIN 30 pg (27-31); MEAN CORPUSCULAR HGB CONC 34 g/dL (33-37); MEAN CORPUSCULAR VOLUME 89.4 fL (80-94); MONOCYTES # (AUTO) 0.5 K/uL (0.8-1.0); NEUTROPHILS # (AUTO) 3.3 K/uL (1.8-7.7); NEUTROPHILS % (AUTO) 57.9 % (42.2-75.2); PLATELET COUNT (AUTO) 240 K/uL (140-450); POTASSIUM 3.5 mmol/L (3.5-5.1); RED BLOOD CELL COUNT(AUTO) 4.11 MIL/uL (4.20-5.40); RED CELL DISTRIBUTION WIDTH 12.3 % (11.6-13.7); WHITE BLOOD COUNT (AUTO) 5.6 K/uL (4.8-10.8)
--- NOTE | 2018-11-25 07:36 | NUR ---
RECEIVED REPORT FROM PM NURSE AT BEDSIDE . PT SHLEPPING ON HER BED. PT ON 5150 HOLD, DX TYLENOL OVERDOSE. OPT HAS RT FA IV ACCESS 20 G.SKIN IS INTACT. NO SIGN IF ANY BEHAVIOR PROBLEM AT THIS TIME. WILL CONTINUE TO MONITOR PT.
[2018-11-25 08:00] VITALS: BP 112/73
--- NOTE | 2018-11-25 08:59 | NUR ---
Packet faxed to Lele at [facility] for review.
[2018-11-25] MEDS: THIAMINE 100 MG TAB PO SCH (09:11)
[2018-11-25] MEDS: MULTIVITAMIN 1 TAB PO SCH (09:11)
[2018-11-25] MEDS: SERTRALINE 50 MG TAB PO SCH (09:12)
[2018-11-25] MEDS: FOLIC ACID 1 MG TAB PO SCH (09:12)
--- NOTE | 2018-11-25 10:17 | NUR ---
Packet faxed to Randall at [facility] for review.
--- NOTE | 2018-11-25 11:09 | NUR ---
RECEIVED CALL [facility] AND ASKED THE REPORT ON PT. GAVE THE RE[ORT TO NURSE DES [phone]. PER NURSE RAMA, ACCEPTING DR IS DR. FLORES. GAVE CALL BACK NUMEBR FOR ANY QUESTION. CHARGE NURSE AWARE. CALLED RESIDENT. NOT IN ROOM. WILL CALL BACK AGAIN TO INFORM THAT PT HAS BEEN ACCEPTED [facility].
--- NOTE | 2018-11-25 14:09 | NUR ---
PT BEING DISCHARGED TO [facility] TO PSYCH UNIT. PT STABLE AT THIS TIME. CALL ED BOYFRIEND ROULA AND GAVE THE CONTACT DETAIL ON THE [PT. NO SIGN OF DISTRESS NOTED. PAPER SIGNED THE DC PAPER ADD VERBALIZED UNDERSTANDING THAT SHE BEING TRANSFERRED FOR HER SAFETY. WAITING FOR THE AMBULANCE. IV SITE DISCONTINUED BY STUDENT NURSE.
--- NOTE | 2018-11-25 14:14 | NUR ---
PT HAS ALL HER BELONGINGS AND HAS THE HOME MEDS WITH THE PATIENT. PT WORKING ON HER LAPTOP. WILL CONTINUE TO MONITOR PT.
--- NOTE | 2018-11-25 14:51 | NUR ---
REPORT INSPECTOR GOLF BALL TO [facility] PERSONNEL. PT TRANSFERED TO [facility]. ALL PTS MEDS AND HER BELONGIONGS HAVE BEEN PROVIDED ALONG WITH DISCHARGE PACKET. 5150 HOLD PAPER HOLD GIVEN TO [facility] PERSONNEL. PT STABLE AT TIME OF DISCHARGE.
== END 2018-11-25 15:00 | DRG 917 ==
LOC: MED 22:15 → MIC 11-22 00:31 → MTU 11-24 14:15
PROVIDERS: ADMIT Family Medicine; ATTEND Family Medicine
DX: T39.1X2A Poisoning by 4-Aminophenol derivatives, intentional self-harm, initial encounter (principal); G92 Toxic encephalopathy; R65.10 Systemic inflammatory response syndrome (SIRS) of non-infectious origin without acute organ dysfunction; R45.851 Suicidal ideations; R45.850 Homicidal ideations; F10.129 Alcohol abuse with intoxication, unspecified; Y90.6 Blood alcohol level of 120-199 mg/100 ml; F41.9 Anxiety disorder, unspecified; F15.10 Other stimulant abuse, uncomplicated; E78.5 Hyperlipidemia, unspecified; F32.9 Major depressive disorder, single episode, unspecified; F90.9 Attention-deficit hyperactivity disorder, unspecified type; Z88.0 Allergy status to penicillin; Y92.89 Other specified places as the place of occurrence of the external cause
CPT/HCPCS: 36415; 71045; 80048; 80053; 80076; 80305; 81003; 82140; 82150; 83036; 83605; 83690; 83735; 83880; 84100; 84436; 84443; 84484; 85025; 85610; 85730; 87040; 87081; 87086; 93005; 99285; C1758; G0480; G0482; J0132; J1644; J2405; J7030; J7060; J7608; Q0092